=== PATIENT | male | born 1960 ===

== ENCOUNTER 2019-08-09 01:03 | Inpatient (IN) | payer BC ==
[~2019-08-09] VITALS: Ht 175.3 cm; Wt 90.7 kg
[2019-08-09] MEDS ORDERED: CRESTOR10 MG (01:18)
[2019-08-09] MEDS ORDERED: ELIQUIS2.5 MG (01:18)
[2019-08-09] MEDS ORDERED: B COMPLEX # 11 EACH (01:19)
[2019-08-09] MEDS ORDERED: VITAMIN B-122500 MCG (01:19)
--- NOTE | 2019-08-09 01:20 | NUR ---
PT ALERTA Y ORIENTADO X3 ESFERAS REFIERE DOLOR DE PECHO, PALPITACIONES Y SUDORACION DESDE LA TARDE DE HOY. PT ANADE QUE AMBROSE OBSERVADO DESDE MARTIN RELOJ QUE MARTIN PULSO SE AMBROSE MANTENIDO EN 130-140 POR MINUTO. SE RELAIZA EKG Y SE PRESENTA A DR VAIL. SE UBICA EN UNIDAD DE DOLOR DE PECHO, EN SAPNA CUBICULO 16, CON BARANDAS ELEVADAS Y FRENOS COLOCADOS. SE CONECTA A MONITOR CARDIACO Y SATUROMETRO DE PULSO. SE LE ORIENTA SOBRE PORTOCOLOS DE LA UNIDAD, REFIERE ENTEDER. SE JODI MUESTRAS DE EMETERIO Y VENOPUNCION CON TECNICAS ASEPTICAS. SE ADMINISTRA NITROSTAT SUBLINGUAL X1 DOSIS. A LOS 5 MINUTOS LUEGO DE LA DOSIS REFIERE INDICA EL DOLOR DE PECHO AMBROSE DISMINUIDO TONY POR COMPLETO. SE LE NOTIFICA ELLO AL DR VAIL. SE COMIENZA CON TRIDIL IV DRIP, BAJANDO POR IVPUMP. SE MANTIENE BAJO OSBERVACION POR CAMBIOS EN LYNDSAY, TRANQUILO Y SIN DIFICULTAD RESPIRATORIA. SE OFRECE URINAL.
--- NOTE | 2019-08-09 06:30 | NUR ---
PT ALERTA Y ORIENTADO X3 ESFERAS SE LE ORIENTA SOBRE TX DE SEGUIMIENTO. REFIERE ENTEDER. SE MOISES MUESTRA DE EMETERIO CON TECNICAS ASEPTICAS. PT TOLERA TX, TRNQUILO Y SIN DIFICULTAD RESPIRATORIA.
--- NOTE | 2019-08-09 08:20 | NUR ---
0730 SE RECIVE PACIENTE ALERTA Y ORIENTADO EN TIEMPO LUGAR Y PERSONA, EN SAPNA #16 CON BARANDAS ELEVADAS,Y POSICION MAS BAJA. PT ANSIOSO. CONECTADO AMONITOR CARDIACO Y OXIMETRIA DE PULSO, CANALIZADO X3 EN PERIFERAL RT POR DISTAL BAJANDO TRIDIL 50MG A 1ML/HR, POR LA MEDIAL CARDIZEM 100MG/100ML 0.9NN BAJANDO A 1ML/HR, POR LA PROXIMAL 0.9NNS A 175 ML/HR, TODAS PATENTE SRI DE EDEMA Y ERITEMA, SE JODI PRESION MANUAL,PACIENTE PENDIENTE A CONSULTA CON MEDICINA INTERNA, LA CUAL ESTA NOTIFICADA. SE ORIENTA SOBRE TRATAMIENTO SE OBSERVA POR CAMBIO. 0800 PACIENTE EVALUADO POR ARI. CROCKETT QUIEN LE ORIENTA SOBRE TRATAMIENTO. 0830 PT SE OBSERVA ANSIOSO, CON PULSOS VARIANTES ENTRE 144- 170 LPM. SE MIDE BP MANUAL 98/70 Y SE LE AUMENTA DRIP DE TRIDIL A 2ML/HR. SE LE PROVEE COMODIDAD Y APOYO PARA CONTRIBUIR A DISMINUIR NIVELES DE ANSIEDAD.
--- NOTE | 2019-08-09 09:30 | NUR ---
[address] CINTRON QUIEN ORDENA COMENZAR DRIP DE LABETALOL 100MG/100ML 0.9NSS BAJANDO A 3ML/HR, D/C DRIP DE TRIDIL Y TITULAR DRIP DE CARDIZEM A MEDIDA QUE DISMINUYA HR CON DRIP DE LABETALOL. 0930 SE ORIENTA A PT Y SE LE ADMINISTRAN MEDICAMENTOS PAOLO PRESCRITOS, , PT TOLERA. SE MIDE BP MANUAL 100/70. SE LE ENTREGA ENVASE DE UC Y SE LE COLECTA MUESTRA DE TSH PAOLO ORDEN. PT TOLERA. 0950 PT SE MANTIENE EN COMPANIA DE ESPOSA.
== END 2019-08-10 13:10 | disposition home or self-care (01) | DRG 280 ==
LOC: ER 01:03 → SEC-K 08:33 → MEDJ 08:33
PROVIDERS: ADMIT Internal Medicine
PROC: 4A12X4Z Monitoring of Cardiac Electrical Activity, External Approach (ICD-10-PCS; principal; 2019-08-09)
PROC: B246ZZZ Ultrasonography of Right and Left Heart (ICD-10-PCS; 2019-08-09)
PROC: C21G1ZZ Planar Nuclear Medicine Imaging of Myocardium using Technetium 99m (Tc-99m) (ICD-10-PCS; 2019-08-10)
DX: I21.A1 Myocardial infarction type 2 (principal); I50.21 Acute systolic (congestive) heart failure; I11.0 Hypertensive heart disease with heart failure; E11.9 Type 2 diabetes mellitus without complications; Z79.4 Long term (current) use of insulin